=== PATIENT | male | born 1970 | race Caucasian/White ===

== ENCOUNTER → 2017-06-06 | Emergency (ER) | payer OTHER ==
[~2017-06-06] VITALS: Ht 167.6 cm; Wt 81.6 kg
[~2017-06-06] MED LIST: XANAX0.25 MG
== END | disposition left against medical advice (07) ==
LOC: ER 11:48
DX: Z53.20 Procedure and treatment not carried out because of patient's decision for unspecified reasons (principal)

== ENCOUNTER → 2018-01-15 | Emergency (ER) | payer OTHER ==
[~2018-01-15] VITALS: Ht 152.4 cm; Wt 81.6 kg
== END | disposition home or self-care (01) ==
LOC: ER 21:19
DX: S80.12XA Contusion of left lower leg, initial encounter (principal); W10.8XXA Fall (on) (from) other stairs and steps, initial encounter; Y93.89 Activity, other specified; Y92.89 Other specified places as the place of occurrence of the external cause; Y99.8 Other external cause status

== ENCOUNTER 2019-01-02 21:36 | Emergency (ER) | payer OTHER ==
[~2019-01-02] VITALS: Ht 165.1 cm; Wt 85.7 kg
[2019-01-03] MEDS ORDERED: NAPROXEN SODIU550 MG PO (02:00)
== END 2019-01-03 02:15 | disposition home or self-care (01) ==
LOC: ER 21:36
DX: S40.011A Contusion of right shoulder, initial encounter (principal); W01.198A Fall on same level from slipping, tripping and stumbling with subsequent striking against other object, initial encounter; Y93.89 Activity, other specified; Y92.89 Other specified places as the place of occurrence of the external cause; Y99.8 Other external cause status

== ENCOUNTER 2019-01-27 20:53 | Emergency (ER) | payer OTHER ==
[~2019-01-27] VITALS: Ht 167.6 cm; Wt 86.2 kg
[~2019-01-27 20:53] MED LIST changes: +NAPROXEN SODIU550 MG PO
== END 2019-01-27 22:46 | disposition home or self-care (01) ==
LOC: ER 20:53
DX: K52.89 Other specified noninfective gastroenteritis and colitis (principal)

== ENCOUNTER → 2022-08-07 | Emergency (ER) | payer OTHER ==
[~2022-08-07] VITALS: Ht 167.6 cm; Wt 86.2 kg
[~2022-08-07] MED LIST changes: +ALPRAZOLAM2 MG PO; +MIRTAZAPINE30 MG PO; +QUETIAPINE FUM100 MG PO; +RESTORIL30 MG PO; +SERTRALINE HCL100 MG PO
== END | disposition home or self-care (01) ==
LOC: ER 22:02
DX: J40 Bronchitis, not specified as acute or chronic (principal); Z91.013 Allergy to seafood; Z20.822 Contact with and (suspected) exposure to COVID-19